=== PATIENT | female | born 1975 | race African-American/Black ===

== ENCOUNTER 2023-02-13 10:00 | Emergency (ER) | payer MEDICAID ==
[~2023-02-13] VITALS: Ht 162.6 cm; Wt 79.5 kg
[2023-02-13 10:02] VITALS: TEMP 98.7
[2023-02-13 10:27] LABS: APPEARANCE,URINE HAZY (CLEAR); BILIRUBIN,URINE NEGATIVE (NEGATIVE); COLOR,URINE YELLOW (YELLOW); GLUCOSE, URINE (UA) NEGATIVE (NEGATIVE); KETONES,URINE NEGATIVE (NEGATIVE); LEUKOCYTE ESTERASE ,URINE NEGATIVE (NEGATIVE); NITRATE,URINE NEGATIVE (NEGATIVE); OCCULT BLOOD,URINE NEGATIVE (NEGATIVE); PH,URINE 5.5 (5.0-8.0); PROTEIN,URINE TRACE mg/dL (NEGATIVE); SPECIFIC GRAVITIY, URINE 1.033 (1.003-1.030)
[2023-02-13] MEDS ORDERED: KETOROLAC TROMETHAMINE 30 MG/ML VIAL IM ONE (10:30)
[2023-02-13 11:43] LABS: BASOPHILS % (AUTO) 0.8 % (0.0-2.0); EOSINOPHILS % (AUTO) 8.8 % (1.0-6.0); HEMATOCRIT 37.1 % (36-46); HEMOGLOBIN 12.2 g/dL (12.0-16.0); LYMPHOCYTES # (AUTO) 0.9 K/uL (1.0-4.8); LYMPHOCYTES % (AUTO) 29.5 % (22.0-44.0); MEAN CORPUSCULAR HEMOGLOBIN 27.6 pg (26.0-34.0); MEAN CORPUSCULAR HGB CONC 32.9 G/dL (31.0-37.0); MEAN CORPUSCULAR VOLUME 84 fL (80-100); MONOCYTES # (AUTO) 0.3 K/uL (0.1-1.0); MONOCYTES % (AUTO) 10.5 % (2.0-9.0); NEUTROPHILS # (AUTO) 1.6 K/uL (1.8-7.7); NEUTROPHILS % (AUTO) 50.4 % (40.0-70.0); PLATELET COUNT (AUTO) 185 K/uL (150-450); RED BLOOD CELL COUNT(AUTO) 4.41 MIL/uL (4.00-5.20); RED CELL DISTRIBUTION WIDTH 17.8 % (11.5-14.5); WHITE BLOOD COUNT (AUTO) 3.2 K/uL (4.5-11.0)
[2023-02-13 11:56] LABS: ANION GAP 3 mmol/L (8-16); CALCIUM, TOTAL 8.5 mg/dL (8.8-10.5); CARBON DIOXIDE 29 mmol/L (22-29); CHLORIDE 105 mmol/L (98-107); CREATININE 1.04 mg/dL (0.60-1.30); GLOMERULAR FILTR. RATE CALC > 60 mL/min (>60); GLUCOSE,RANDOM 91 mg/dL (70-110); POTASSIUM 4.1 mmol/L (3.5-5.1); SODIUM SERUM 137 mmol/L (136-145); UREA NITROGEN, BLOOD 11 mg/dL (7-18)
[2023-02-13 12:06] LABS: ALANINE AMINOTRANSFERASE 12 U/L (12-78); ALBUMIN 3.1 g/dL (3.4-5.0); ALKALINE PHOSPHATASE 55 U/L (46-116); ASPARTATE AMINOTRANSFERASE 12 U/L (15-37); BILIRUBIN,TOTAL 0.9 mg/dL (0.1-1.0); LIPASE 73 U/L (16-77); TOTAL PROTEIN, SERUM 6.6 g/dL (6.4-8.2)
[2023-02-13 12:19] LABS: RBC MORPHOLOGY COMMENT ABNORMAL RBC MORPH
[2023-02-13] MEDS ORDERED: IBUP-1492 PO (12:26)
[2023-02-13] MEDS ORDERED: CYCL-448 PO (12:26)
[2023-02-13 12:35] VITALS: BP 145/98; PULSE 72; RESP 18
== END 2023-02-13 16:15 | disposition home or self-care (01) ==
LOC: EMS 10:00
DX: R10.9 Unspecified abdominal pain (principal); R03.0 Elevated blood-pressure reading, without diagnosis of hypertension; Z90.710 Acquired absence of both cervix and uterus
CPT/HCPCS: 99283; 80053; 81003; 83690; 85025; 36415; 96372; J1885

== ENCOUNTER 2023-05-31 00:22 | Emergency (ER) | payer MEDICAID, OTHER ==
[~2023-05-31] VITALS: Ht 162.6 cm; Wt 79.5 kg
[~2023-05-31 00:22] MED LIST: CYCL-448 PO; IBUP-1492 PO
[2023-05-31 00:41] VITALS: TEMP 98.4
[2023-05-31 01:55] VITALS: BP 140/80; PULSE 64; RESP 14
[2023-05-31] MEDS: LIDOCAINE 1% 10 ML VIAL SQ ONE (02:27)
[2023-05-31] MEDS ORDERED: CLIN-142 PO (02:41)
[2023-05-31] MEDS: CLINDAMYCIN HCL 150 MG CAPSULE PO ONE (02:41)
== END 2023-05-31 03:26 | disposition home or self-care (01) ==
LOC: EMS 00:22
DX: L02.214 Cutaneous abscess of groin (principal); Z90.710 Acquired absence of both cervix and uterus
CPT/HCPCS: 99283; 10060; J3490